=== PATIENT | male | born 1985 | race African-American/Black ===

== ENCOUNTER 2017-07-22 00:38 | Emergency (ER) | payer OTHER ==
[~2017-07-22] VITALS: Ht 180.3 cm; Wt 88.5 kg
[2017-07-22] MEDS ORDERED: ALBUTEROL SULFATE 2.5 MG/3 ML NEBU ONE (00:53)
[2017-07-22] MEDS ORDERED: IPRATROPIUM BROMIDE 0.5 MG/2.5 ML NEBU ONE (00:53)
[2017-07-22] MEDS ORDERED: PREDNISONE (00:58)
[2017-07-22] MEDS ORDERED: SYMBICORT (00:58)
[2017-07-22] MEDS ORDERED: ALBUTEROL HHN (00:58)
[2017-07-22] MEDS ORDERED: predniSONE 20 MG TABLET PO ONE (01:00)
[2017-07-22] MEDS ORDERED: IPRATROPIUM BROMIDE 0.5 MG/2.5 ML NEBU NEB ONE (01:00)
[2017-07-22] MEDS ORDERED: ALBUTEROL SULFATE 2.5 MG/3 ML NEBU NEB ONE (01:00)
[2017-07-22] MEDS ORDERED: predniSONE 20 MG TABLET ONE (01:15)
--- NOTE | 2017-07-22 01:15 | NUR ---
Patient getting albuterol tx. Breathing tx well tolerated. No acute distress. VSS. No asc noted.
--- NOTE | 2017-07-22 01:32 | NUR ---
Patient discharged to home in stable conditon. Written and verbal after care instructions given. Patient verbalizes understanding of instructions. Patient able to ambulate unassisted with steady gait. Patient left with all of his belongings.
[2017-07-22 01:35] VITALS: BP 119/71
== END 2017-07-22 01:22 | disposition home or self-care (01) ==
LOC: ER 00:40
DX: J45.901 Unspecified asthma with (acute) exacerbation (principal)
CPT/HCPCS: 94640; 99283; A4663; J3590; J7512